=== PATIENT | female | born 1995 | race Caucasian/White ===

== ENCOUNTER 2021-01-16 21:42 | Emergency (ER) | payer MEDICAID ==
[~2021-01-16] VITALS: Ht 157.5 cm; Wt 72.6 kg
[2021-01-16] MEDS ORDERED: TOPAMAX SPRINKL15 M1 (21:53)
[2021-01-16 22:21] VITALS: BP 134/87
--- NOTE | 2021-01-17 14:21 | EKG ---
[place] [address] ELECTROCARDIOGRAM REPORT Name: GERBER MEIER Room: [facility]#: [id number] Admission: 01/16/21 Attend Phys: Discharge: 01/16/21 Date of : [birth year] Date of Service: 01/16/212146 Report #: [id number] THIS REPORT FOR: //name// [facility] ED Test Date: 2021-01-16 Test Time: 21:47:43 Pat Name: GERBER MEIER Department: Room: Gender: [employer] Director: : [id number] Requested By: Luz Mraina Almaraz Order Number: [id number] MD: Hermelindo Durand Measurements Intervals [place] Rate: 93 P: 40 MO: 157 QRS: 16 QRSD: 99 T: 8 QT: 344 QTc: 428 Interpretive Statements Sinus rhythm Baseline wander in lead(s) V3,V4,V5,V6 No previous ECG available for comparison Electronically Signed On 01-17-2021 14:20:57 CDT by Hermelindo Durand [email or web address] <ELECTRONICALLY SIGNED> By: Hermelindo Durand MD, [facility] 01/17/21 1420 46 Hermelindo Durand MD, [facility] /EPI
== END 2021-01-16 22:21 | disposition left against medical advice (07) ==
LOC: M.ERS 21:42
DX: R07.89 Other chest pain (principal); J45.909 Unspecified asthma, uncomplicated; K21.9 Gastro-esophageal reflux disease without esophagitis

== ENCOUNTER 2021-03-29 14:43 | Emergency (ER) | payer OTHER ==
[~2021-03-29] VITALS: Ht 162.6 cm; Wt 79.4 kg
[~2021-03-29 14:43] MED LIST: TOPAMAX SPRINKL15 M1
[2021-03-29 16:58] VITALS: BP 134/83
== END 2021-03-29 17:00 | disposition left against medical advice (07) ==
LOC: M.ERS 14:43
DX: Z53.21 Procedure and treatment not carried out due to patient leaving prior to being seen by health care provider (principal)

== ENCOUNTER 2021-04-22 12:34 | Emergency (ER) | payer OTHER ==
[~2021-04-22] VITALS: Ht 162.6 cm; Wt 78.9 kg
[2021-04-22 12:57] VITALS: BP 120/90
[2021-04-22] MEDS ORDERED: ENBRACE HR SOF1 EACH PO (13:00)
[2021-04-22] MEDS ORDERED: MOBIC15 MG PO (13:03)
== END 2021-04-22 13:19 | disposition home or self-care (01) ==
LOC: M.ERS 12:34
DX: S80.11XA Contusion of right lower leg, initial encounter (principal); J45.909 Unspecified asthma, uncomplicated; Z79.899 Other long term (current) drug therapy; W23.0XXA Caught, crushed, jammed, or pinched between moving objects, initial encounter; Y93.89 Activity, other specified; Y92.89 Other specified places as the place of occurrence of the external cause; Y99.8 Other external cause status

== ENCOUNTER 2021-05-12 18:59 | Emergency (ER) | payer MEDICAID ==
[~2021-05-12] VITALS: Ht 162.6 cm; Wt 59.0 kg
[~2021-05-12 18:59] MED LIST changes: +ENBRACE HR SOF1 EACH PO; +MOBIC15 MG PO
[2021-05-12 20:29] VITALS: BP 125/68
== END 2021-05-12 20:30 | disposition home or self-care (01) ==
LOC: M.ERS 18:59
DX: R51.9 Headache, unspecified (principal); Z88.5 Allergy status to narcotic agent

== ENCOUNTER 2021-06-17 14:45 | Emergency (ER) | payer MEDICAID ==
[~2021-06-17] VITALS: Ht 162.6 cm; Wt 78.5 kg
[2021-06-17 15:35] LABS: URINE BILIRUBIN NEGATIVE (Negative); URINE BLOOD TRACE (Negative); URINE CLARITY CLOUDY; URINE COLOR YELLOW; URINE GLUCOSE-RANDOM NEGATIVE (Negative); URINE KETONES 1+ (Negative); URINE NITRITE-REFLEX NEGATIVE (Negative); URINE PROTEIN NEGATIVE (Negative); URINE SPECIFIC GRAVITY 1.025 (1.005-1.030)
[2021-06-17 15:51] LABS: URINE LEUKOCYTES-REFLEX 3+ (Negative)
[2021-06-17 15:56] LABS: BACTERIA-REFLEX >30 Many /HPF (None Seen); SQUAMOUS >10 Many /LPF (0-3); URINE RBC 0-2 Rare /HPF (0-2)
[2021-06-17 15:57] LABS: CASTS None Seen /LPF (None Seen); CRYSTALS None Seen /LPF (None Seen)
[2021-06-17] MEDS ORDERED: CEPHALEXIN500 MG PO (16:14)
[2021-06-17] MEDS ORDERED: TOPAMAX50 MG PO (16:14)
[2021-06-17 16:33] VITALS: BP 131/66
== END 2021-06-17 16:33 | disposition home or self-care (01) ==
LOC: M.ERS 14:45
PROVIDERS: Emergency Medicine Emergency Medical Services
DX: O23.42 Unspecified infection of urinary tract in pregnancy, second trimester (principal); R51.9 Headache, unspecified; J45.909 Unspecified asthma, uncomplicated; Z91.09 Other allergy status, other than to drugs and biological substances; Z79.899 Other long term (current) drug therapy; Z88.5 Allergy status to narcotic agent; Z3A.16 16 weeks gestation of pregnancy